=== PATIENT | male | born 1980 | race Caucasian/White ===

== ENCOUNTER 2024-08-28 08:40 | Outpatient (CLI) | payer OTHER | END 2024-08-28 08:41 | disposition home or self-care (01) | LOC: BICRAD 08:40 | PROVIDERS: ATTEND Family Medicine | DX: M54.50 Low back pain, unspecified (principal); M47.816 Spondylosis without myelopathy or radiculopathy, lumbar region; M25.78 Osteophyte, vertebrae; Z90.49 Acquired absence of other specified parts of digestive tract | CPT/HCPCS: 72110 ==

== ENCOUNTER 2025-04-27 14:09 | Outpatient (CLI) | payer OTHER | END 2025-04-27 14:10 | disposition home or self-care (01) | LOC: BICRAD 14:09 | PROVIDERS: ATTEND Family Medicine | DX: M25.511 Pain in right shoulder (principal); M19.011 Primary osteoarthritis, right shoulder ==